=== PATIENT | male | born 1990 | race Caucasian/White ===

== ENCOUNTER 2019-06-14 09:59 | Emergency (ER) | payer OTHER ==
[2019-06-14 10:15] VITALS: BP 119/74; PULSE 58; RESP 16; TEMP 97.9
[2019-06-14] MEDS ORDERED: CYCLOBENZAPRINE 10 MG TAB PO STA (11:06)
[2019-06-14] MEDS ORDERED: KETOROLAC 30 MG/ML 1 ML VIAL IM STA (11:06)
[2019-06-14] MEDS ORDERED: methylPREDNISolone SOD SUCCI 125 MG/2 ML VIAL IM ONE (11:06)
--- NOTE | 2019-06-14 11:35 | ED ---
General Adult HPI - General Chief complaint: Extremity Injury, Lower Stated complaint: IHS - leg injury Time Seen by Provider: 06/14/19 10:24 Source: patient Mode of arrival: ambulatory Limitations: no limitations - History of Present Illness Initial comments: 29-year-old male presents to the emergency department for a chief complaint of right leg pain. Patient states he was walking at work when he stepped in a pot hole and felt a pain in his right buttock and right knee. Patient states his knee now feels normal but his right buttock is still somewhat painful. States the pain radiates from his buttock down to his toes in his right leg only. States when he puts pressure on his right buttock this causes the pain to worsen. Patient states that his toes were tingling when he puts pressure on his right buttock but when he takes pressure off his toes feel normal. States he is able to walk without difficulty. Denies any numbness of the groin or buttock. Denies any weakness or difficulty walking in the lower extremities. Denies any changes in bladder or bowel function. States his pain is a 6 out of 10. No fevers or chills or history of IV drug abuse. Patient has no other complaints at this time including shortness of breath, chest pain, abdominal pain, nausea or vomiting, headache, or visual changes. - Related Data Previous Rx's Medication Instructions Recorded Cyclobenzaprine [Flexeril] 10 mg PO TID #12 tab 06/14/19 predniSONE 50 mg PO DAILY #5 tablet 06/14/19 Allergies Allergy/AdvReac Type Severity Reaction Status Date / Time No Known Allergies Allergy Verified 06/14/19 10:27 Review of Systems ROS Statement: Those systems with pertinent positive or pertinent negative responses have been documented in the HPI. ROS Other: All systems not noted in ROS Statement are negative. Past Medical History Past Medical History: No Reported History History of Any Multi-Drug Resistant Organisms: None Reported Past Surgical History: No Surgical Hx Reported Past Psychological History: No Psychological Hx Reported Smoking Status: Current every day smoker Past Alcohol Use History: Occasional Past Drug Use History: None Reported General Exam Limitations: no limitations General appearance: alert, in no apparent distress Head exam: Present: atraumatic, normocephalic, normal inspection Eye exam: Present: normal appearance, PERRL, EOMI. Absent: scleral icterus, conjunctival injection, periorbital swelling ENT exam: Present: normal exam, mucous membranes moist Neck exam: Present: normal inspection. Absent: tenderness, meningismus, lymphadenopathy Respiratory exam: Present: normal lung sounds bilaterally. Absent: respiratory distress, wheezes, rales, rhonchi, stridor Cardiovascular Exam: Present: regular rate, normal rhythm, normal heart sounds. Absent: systolic murmur, diastolic murmur, rubs, gallop, clicks GI/Abdominal exam: Present: soft, normal bowel sounds. Absent: distended, tenderness, guarding, rebound, rigid Extremities exam: Present: full ROM (Full range motion of the right leg including the right hip and knee and ankle.), tenderness (Tenderness noted to the right sciatic notch. No tenderness noted to the remainder of the right leg.), normal capillary refill (Capillary refill less than 2 seconds, DP pulse 2+ in the right lower extremity.), other (Sensation intact in the right lower extremity including all digits of the right foot. Positive straight leg raise test.). Absent: pedal edema, joint swelling (No edema or erythema noted of the right lower extremity.), calf tenderness (Note tenderness noted to the right calf. No swelling or edema. No erythema.) Back exam: Absent: vertebral tenderness (No vertebral tenderness.) Neurological exam: Present: normal gait (Patient has a normal gait without difficulty walking.) Course Vital Signs 06/14/19 10:13 Temperature 97.9 F Pulse Rate 58 L Respiratory 16 Rate Blood Pressure 119/74 O2 Sat by Pulse 97 Oximetry Medical Decision Making - Medical Decision Making 29-year-old male presents for right leg pain after stepping in a hole at work. Pain starts in the right buttock and radiates down the right leg. Putting pressure on the right buttock worsens this pain. Neurovascular status is intact in the right lower extremity. Positive straight leg raise test is noted in the right leg. Patient does not have any red flag symptoms. He is ambulatory without difficulty or weakness. Does state he felt tingling in his right toes however this is only when he puts pressure on his right buttock and states that his toes feel numb at this time and has normal sensation. No numbness or feeling to the groin or buttock. No bladder or bowel changes. At this time patient likely has a sciatic nerve pain. Was given IM injection of steroid and anti-inflammatory as well as a muscle relaxer. Family member at bedside observing him home. Patient will follow-up with orthopedics and continue to take steroids anti-inflammatories and muscle relaxers at home. He was given a work note as requested. He will return if he has any worsening symptoms which were discussed thoroughly with him Disposition Clinical Impression: Sciatic leg pain Disposition: HOME SELF-CARE Condition: Good Instructions (If sedation given, give patient instructions): Sciatica (ED), Lower Back Exercises (ED) Additional Instructions: Please take steroid as directed. Please take Motrin Tylenol for pain. Take muscle relaxer as needed but do not drive or operate machinery while taking muscle relaxer. This was prescribed to [facility] pharmacy. Follow-up with ortho in 1-2 days. Return to the emergency department if you have any worsening symptoms such as bladder or bowel changes, numbness or tingling in the groin or buttock, weakness of the lower extremities, or any other concerning symptoms.. Prescriptions: Cyclobenzaprine [Flexeril] 10 mg PO TID #12 tab predniSONE 50 mg PO DAILY #5 tablet Is patient prescribed a controlled substance at d/c from ED?: No Referrals: Ayana Garza MD [REFERRING] - 1-2 days Susy Cook DO [Doctor of Osteopathic Medicine] - 1-2 days Time of Disposition: 11:32
== END 2019-06-14 11:56 | disposition home or self-care (01) ==
LOC: EC 09:59
DX: M54.31 Sciatica, right side (principal); F17.200 Nicotine dependence, unspecified, uncomplicated
CPT/HCPCS: 99283; 96372 ×2; J2930; J1885

== ENCOUNTER 2019-08-31 13:42 | Emergency (ER) | payer OTHER ==
[2019-08-31 13:46] VITALS: TEMP 98.1
[2019-08-31] MEDS ORDERED: ACET/COD 300 MG/30 MG STARTER PACK 6 TAB BTL PO STA (14:53)
--- NOTE | 2019-08-31 15:20 | XR ---
EXAMINATION TYPE: XR wrist complete RT, XR hand complete RT DATE OF EXAM: 08/31/2019 CLINICAL HISTORY: Fall injury with pain. TECHNIQUE: Frontal, lateral and oblique images of the right hand and wrist are obtained. Additional fourth scaphoid view right wrist. COMPARISON: None FINDINGS: There is no acute fracture/dislocation evident in the right wrist. The joint spaces in th e right wrist appear within normal limits. The overlying soft tissue appears unremarkable. Images of the right hand show no acute fracture or dislocation. Incomplete extension of phalanges. Renita int spaces are preserved. Overlying soft tissue is unremarkable. IMPRESSION: There is no acute fracture or dislocation in the right hand or wrist.
[2019-08-31] MEDS ORDERED: IBUPROFEN 600 MG TAB PO STA (15:43)
--- NOTE | 2019-08-31 15:58 | ED ---
Upper Extremity HPI - General Chief Complaint: Extremity Injury, Upper Stated Complaint: Rt wrist/hand injury Time Seen by Provider: 08/31/19 14:45 Source: patient, RN notes reviewed, old records reviewed Mode of arrival: ambulatory Limitations: no limitations - History of Present Illness Initial Comments: This is a 29-year-old male presents emergency times a day after falling down a few stairs on his porch. Complains of right wrist and hand pain. He reports the pain and swelling is mainly over the fourth and fifth metacarpals and carpals. Patient denies any other injury related to the fall. He states he has some pain with range of motion of his fingers. He denies any other symptoms at this time. - Related Data Previous Rx's Medication Instructions Recorded Cyclobenzaprine [Flexeril] 10 mg PO TID #12 tab 06/14/19 predniSONE 50 mg PO DAILY #5 tablet 06/14/19 Ibuprofen 600 mg PO TID #20 tablet 08/31/19 Allergies Allergy/AdvReac Type Severity Reaction Status Date / Time No Known Allergies Allergy Verified 06/14/19 10:27 Review of Systems ROS Statement: Those systems with pertinent positive or pertinent negative responses have been documented in the HPI. ROS Other: All systems not noted in ROS Statement are negative. Past Medical History Past Medical History: No Reported History History of Any Multi-Drug Resistant Organisms: None Reported Past Surgical History: No Surgical Hx Reported Past Psychological History: Bipolar, Depression Smoking Status: Current every day smoker Past Alcohol Use History: Occasional Past Drug Use History: None Reported General Exam - General Exam Comments Initial Comments: Alert and oriented 29-year-old male. No significant distress. Limitations: no limitations General appearance: alert, in no apparent distress Head exam: Present: atraumatic, normocephalic, normal inspection Eye exam: Present: normal appearance, PERRL, EOMI. Absent: scleral icterus, conjunctival injection, periorbital swelling ENT exam: Present: normal exam, mucous membranes moist Neck exam: Present: normal inspection. Absent: tenderness, meningismus, lymphadenopathy Respiratory exam: Present: normal lung sounds bilaterally. Absent: respiratory distress, wheezes, rales, rhonchi, stridor Cardiovascular Exam: Present: regular rate, normal rhythm, normal heart sounds. Absent: systolic murmur, diastolic murmur, rubs, gallop, clicks Right Upper Arm exam: Present: normal inspection, full ROM Elbow exam: Present: normal inspection Forearm Wrist exam: Present: normal inspection, full ROM Hand Wrist exam: Present: tenderness (Show some tenderness and swelling over the fourth and fifth metacarpals and over the ulna styloid process.), swelling. Absent: normal inspection Back exam: Present: normal inspection Neurological exam: Present: alert, oriented X3, CN II-XII intact Psychiatric exam: Present: normal affect, normal mood Skin exam: Present: warm, dry, intact, normal color. Absent: rash Course Vital Signs 08/31/19 08/31/19 13:44 16:08 Temperature 98.1 F 98.1 F Pulse Rate 96 61 Respiratory 17 18 Rate Blood Pressure 125/76 113/64 O2 Sat by Pulse 95 99 Oximetry Procedures - Orthopedic Splinting/Casting Injury #1 Side: right Upper Extremity Injury Location: hand Upper Extremity Immobilizer: ulnar gutter, Candelario wrap, synthetic pre-padded splint Additional Comments: Patient was reevaluated neurovascularly intact. Medical Decision Making - Medical Decision Making 29-year-old male presents today with right hand and wrist pain. Patient reports he tripped down the stairs at his porch. He has no other complaints from the fall. Patient has some tenderness and swelling over the fourth and fifth metacarpal and over the ulnar styloid process. At this time patient's x-rays of the wrist and hand are negative for any acute process. No fracture. Patient was given Candelario wrap, ulnar gutter splint to help with support this with her discussed there is no fracture time. Discussed via continued pain he can follow-up with orthopedic. Patient is agreeable treatment plan will comply. Return parameters were discussed. - Radiology Data Radiology results: report reviewed no Acute fracture or dislocation in the right hand or wrist. Disposition Clinical Impression: Hand contusion, Wrist sprain Disposition: HOME SELF-CARE Condition: Good Instructions (If sedation given, give patient instructions): Hand Sprain (ED) Additional Instructions: Please use medication as discussed. Please follow up with family doctor if symptoms have not improved over the next two days. Please return to the emergency room if your symptoms increase or worsen or for any other concerns. follow up with fire prevention specialist. Wear the Candelario wrap as directed. Prescriptions: Ibuprofen 600 mg PO TID #20 tablet Is patient prescribed a controlled substance at d/c from ED?: No Referrals: None,Stated [Primary Care Provider] - 1-2 days Graeme Lea DO [Doctor of Osteopathic Medicine] - 1-2 days Time of Disposition: 15:57
[2019-08-31 16:12] VITALS: BP 113/64; PULSE 61; RESP 18
== END 2019-08-31 16:18 | disposition home or self-care (01) ==
LOC: EC 13:42
DX: S63.501A Unspecified sprain of right wrist, initial encounter (principal); F17.200 Nicotine dependence, unspecified, uncomplicated; W10.9XXA Fall (on) (from) unspecified stairs and steps, initial encounter
CPT/HCPCS: 29125; 99284

== ENCOUNTER → 2021-06-12 | Outpatient (CLI) | payer OTHER ==
--- NOTE | 2021-06-15 09:07 | CT ---
EXAMINATION TYPE: CT abdomen pelvis wo con DATE OF EXAM: 06/12/2021 COMPARISON: 06/02/2018 HISTORY: 31-year-old male Bilateral flank pain, back pain. Bowel/urination difficulty. CT DLP: 1025 mGycm. Automated exposure control for dose reduction was used. TECHNIQUE: Contiguous axial scanning of the abdomen and pelvis without IV contrast. Coronal and sagit marivel reconstructions performed. FINDINGS: Heart normal size without pericardial effusion. Lung bases clear without pleural effusion. Small hiatal hernia. Noncontrast appearance of the liver, gallbladder, adrenal glands, spleen, and pancreas show no gross abnormality. Right kidney shows no calculi are contour deforming lesion. Left kidney demonstrates a 7 mm nonobstructive mid pole calculus. No hydronephrosis on either side. N o suspicious calculus along the course of either ureter. No dilated small bowel, free fluid, or free air. A few nonenlarged retroperitoneal lymph nodes measuring up to 6 mm. No mesenteric or retroperitoneal lymphadenopathy. Normal appendix. Mild stool burden. Mild diverticular change in the sigmoid colon. No pericolonic inf lammatory change. Moderate circumferential bladder wall thickening. Prostate gland is borderline enlarged measuring 4.1 cm wide. Multiple left-sided pelvic phleboliths. No abnormal fluid collection in the pelvis or pelvi c lymphadenopathy. Bones: No osseous destructive process. IMPRESSION: 1. Small hiatal hernia, 7 mm nonobstructive left renal calculus, and mild diverticulosis in the sigm oid colon. 2. Moderate circumferential bladder wall thickening could represent chronic bladder wall hypertrophy or cystitis. Clinically correlate.
== END | disposition home or self-care (01) ==
LOC: RADCTMAIN 16:39
PROVIDERS: ATTEND Family Medicine
DX: N20.0 Calculus of kidney (principal); K57.30 Diverticulosis of large intestine without perforation or abscess without bleeding; K44.9 Diaphragmatic hernia without obstruction or gangrene; N32.89 Other specified disorders of bladder
CPT/HCPCS: 74176

== ENCOUNTER 2021-08-24 12:32 | Emergency (ER) | payer OTHER ==
[2021-08-24 12:40] VITALS: TEMP 98.4
--- NOTE | 2021-08-24 13:17 | XR ---
EXAMINATION TYPE: XR chest 2V DATE OF EXAM: 08/24/2021 COMPARISON: NONE HISTORY: Chest pain TECHNIQUE: Frontal and lateral views of the chest are obtained. FINDINGS: There is no focal air space opacity. No evidence for pneumothorax. No pleural effusion. The cardiac silhouette size is within normal limits. The osseous structures are grossly intact. IMPRESSION: 1. No acute cardiopulmonary process.
[2021-08-24 13:39] LABS: Partial Thromboplastin Time 26.3 sec (22.0-30.0); Prothrombin Time 10.3 sec (9.0-12.0)
[2021-08-24 13:44] LABS: Basophils % (A) 0 %; Eosinophils # (A) 0.3 k/uL (0-0.7); Eosinophils % (A) 3 %; Lymphocytes # (A) 1.8 k/uL (1.0-4.8); Lymphocytes % (A) 13 %; MCH 30.8 pg (25.0-35.0); MCHC 35.4 g/dL (31.0-37.0); MCV 87.2 fL (80.0-100.0); Mean Platelet Volume 8.4; Monocytes # (A) 0.8 k/uL (0-1.0); Monocytes % (A) 6 %; Neutrophils # (A) 10.4 k/uL (1.3-7.7); Neutrophils % (A) 77 %; Platelet Count 336 k/uL (150-450); RDW 11.7 % (11.5-15.5); WBC 13.4 k/uL (3.8-10.6)
[2021-08-24 14:05] LABS: ALT 15 U/L (4-49); AST 19 U/L (17-59); African American GFR (CKD) >90 (>60 ml/min/1.73 sqM); Albumin 4.5 g/dL (3.5-5.0); Alkaline Phosphatase 88 U/L (38-126); Anion Gap 8 mmol/L; Blood Urea Nitrogen 11 mg/dL (9-20); Calcium 9.3 mg/dL (8.4-10.2); Carbon Dioxide 24 mmol/L (22-30); Chloride 105 mmol/L (98-107); Glucose 91 mg/dL (74-99); Magnesium 2.1 mg/dL (1.6-2.3); Non-African American GFR(CKD) >90 (>60 ml/min/1.73 sqM); Potassium 4.3 mmol/L (3.5-5.1); Sodium 137 mmol/L (137-145); Total Bilirubin 0.6 mg/dL (0.2-1.3); Total Protein 7.5 g/dL (6.3-8.2)
[2021-08-24] MEDS ORDERED: dexAMETHasone 2 MG TAB PO STA (17:13)
[2021-08-24] MEDS ORDERED: AZITHROMYCIN 500 MG TAB PO STA (17:13)
--- NOTE | 2021-08-24 17:15 | ED ---
General Adult HPI - General Chief complaint: Chest Pain Stated complaint: Chest pain Time Seen by Provider: 08/24/21 16:55 Source: patient Mode of arrival: ambulatory Limitations: no limitations - History of Present Illness Initial comments: Patient is a 31-year-old male with no significant past medical history presents emergency Department complaining of a two-week history of upper respiratory symptoms, and chest tightness. Patient states that his diagnosed with a viral syndrome 2 weeks ago, and is feeling somewhat better but symptoms are still pe rsisting. He states he is having worsening pain with coughing and a tightness across his chest. Denies any sore throat. Endorses rhinorrhea. Patient states he was previously tested for Covid and it was negative. Denies any nausea, vomiting. Endorses normal appetite. Tolerating by mouth intake. Denies diarrhea. Has no known sick contacts. He does typical he smoked but has no history of COPD or asthma. Presents emergency department over continued symptoms, as his PCP has not started on any medications. I evaluated the patient when he was brought back from triage. Workup was started in triage. - Related Data Previous Rx's Medication Instructions Recorded Cyclobenzaprine [Flexeril] 10 mg PO TID #12 tab 06/14/19 predniSONE 50 mg PO DAILY #5 tablet 06/14/19 Ibuprofen 600 mg PO TID #20 tablet 08/31/19 Azithromycin [Zithromax] 250 mg PO DAILY 4 Days #4 tab 08/24/21 Allergies Allergy/AdvReac Type Severity Reaction Status Date / Time No Known Allergies Allergy Verified 08/24/21 12:36 Review of Systems ROS Statement: Those systems with pertinent positive or pertinent negative responses have been documented in the HPI. Review of Systems: CONST: Denies fever EYES: Denies blurry vision ENT: Endorses nasal congestion C/V: Endorses chest tightness RESP: Denies shortness of breath GI: Denies abdominal pain : Denies dysuria SKIN: Denies rash. MSK: Denies joint pain. NEURO: Denies headache ROS Other: All systems not noted in ROS Statement are negative. Past Medical History Past Medical History: No Reported History History of Any Multi-Drug Resistant Organisms: None Reported Past Surgical History: No Surgical Hx Reported Past Psychological History: Bipolar, Depression Smoking Status: Current every day smoker Past Alcohol Use History: Occasional Past Drug Use History: None Reported General Exam - General Exam Comments Initial Comments: General: Appears in no acute distress. HEAD: Normal with no signs of head trauma. EYES: PERRLA, EOMI, conjunctiva normal, no discharge. ENT: Hearing grossly intact, normal oropharynx. RESPIRATORY: Clear breath sounds bilaterally. No wheezes, rales, or rhonchi. No increased work of breathing. No hypoxia. C/V: Regular rate and rhythm. S1 and S2 auscultated, no edema, peripheral p ulses 2+ and intact throughout. Chest pain is not reproducible on palpation. ABD: Abd is soft, nontender, nondistended EXT: Normal range of motion, no obvious deformity SKIN: No rashes or lesions observed on exposed skin. NEURO: Alert and oriented 4. Limitations: no limitations Course Vital Signs 08/24/21 08/24/21 12:36 17:30 Temperature 98.4 F Pulse Rate 84 82 Respiratory 18 16 Rate Blood Pressure 131/73 122/60 O2 Sat by Pulse 98 97 Oximetry Medical Decision Making - Medical Decision Making Based on patient's presentation and physical exam, I'm concerned for likely persistent upper respiratory illness and the patient. Chest pain workup was started by triage nursing, including d-dimer, troponin, EKG, chest x-ray, Covid swab and basic labs. I evaluated the patient after all results returned. EKG showed normal sinus rhythm with no signs of acute ischemia. Chest x-ray shows no acute cardiopulmonary process. Laboratory studies were remarkable for mild leukocytosis of 13.4. D-dimer is within normal limits at 0.32. Troponin is negative. Covid is negative. Remainder the labs are unremarkable. Accepted the patient on results of his labs and imaging. I do believe this may be to stay persistent viral illness, possible bronchitis. I did offer the patient a Z-Randy as well as a one-time dose of Decadron. He was in agreement with the plan. I do believe it is safe for him to be discharged home at this time. Patient will be given 6 mgs of Decadron as well as 500 mg of azithromycin prior to discharge. I will provide the patient with a prescription for azithromycin 250 mg for 4 days. I instructed the patient to follow up with their PCP in the next 3 days. I explained that the patient should return to the emergency department if they experience any worsening symptoms. Strict return precautions were discussed with the patient. The patient expressed understanding of these instructions. I answered all questions that the patient had. The patient was discharged home in good condition with their prescriptions and follow up information. - Lab Data Result diagrams: 08/24/21 12:54 08/24/21 12:54 Lab Results 08/24/21 08/24/21 08/24/21 Range/Units 12:54 12:54 12:54 WBC 13.4 H (3.8-10.6) k/uL RBC 5.50 (4.30-5.90) m/uL Hgb 17.0 (13.0-17.5) gm/dL Hct 48.0 (39.0-53.0) % MCV 87.2 (80.0-100.0) fL MCH 30.8 (25.0-35.0) pg MCHC 35.4 (31.0-37.0) g/dL RDW 11.7 (11.5-15.5) % Plt Count 336 (150-450) k/uL MPV 8.4 Neutrophils % 77 % Lymphocytes % 13 % Monocytes % 6 % Eosinophils % 3 % Basophils % 0 % Neutrophils # 10.4 H (1.3-7.7) k/uL Lymphocytes # 1.8 (1.0-4.8) k/uL Monocytes # 0.8 (0-1.0) k/uL Eosinophils # 0.3 (0-0.7) k/uL Basophils # 0.0 (0-0.2) k/uL PT 10.3 (9.0-12.0) sec INR 1.0 (<1.2) APTT 26.3 (22.0-30.0) sec D-Dimer 0.32 (<0.60) mg/L FEU Sodium 137 (137-145) mmol/L Potassium 4.3 (3.5-5.1) mmol/L Chloride 105 (98-107) mmol/L Carbon Dioxide 24 (22-30) mmol/L Anion Gap 8 mmol/L BUN 11 (9-20) mg/dL Creatinine 0.94 (0.66-1.25) mg/dL Est GFR (CKD-EPI)AfAm >90 (>60 ml/min/1.73 sqM) Est GFR (CKD-EPI)NonAf >90 (>60 ml/min/1.73 sqM) Glucose 91 (74-99) mg/dL Calcium 9.3 (8.4-10.2) mg/dL Magnesium 2.1 (1.6-2.3) mg/dL Total Bilirubin 0.6 (0.2-1.3) mg/dL AST 19 (17-59) U/L ALT 15 (4-49) U/L Alkaline Phosphatase 88 (38-126) U/L Troponin I (0.000-0.034) ng/mL Total Protein 7.5 (6.3-8.2) g/dL Albumin 4.5 (3.5-5.0) g/dL Coronavirus (PCR) (Not Detectd) 08/24/21 08/24/21 Range/Units 12:54 13:05 WBC (3.8-10.6) k/uL RBC (4.30-5.90) m/uL Hgb (13.0-17.5) gm/dL Hct (39.0-53.0) % MCV (80.0-100.0) fL MCH (25.0-35.0) pg MCHC (31.0-37.0) g/dL RDW (11.5-15.5) % Plt Count (150-450) k/uL MPV Neutrophils % % Lymphocytes % % Monocytes % % Eosinophils % % Basophils % % Neutrophils # (1.3-7.7) k/uL Lymphocytes # (1.0-4.8) k/uL Monocytes # (0-1.0) k/uL Eosinophils # (0-0.7) k/uL Basophils # (0-0.2) k/uL PT (9.0-12.0) sec INR (<1.2) APTT (22.0-30.0) sec D-Dimer (<0.60) mg/L FEU Sodium (137-145) mmol/L Potassium (3.5-5.1) mmol/L Chloride (98-107) mmol/L Carbon Dioxide (22-30) mmol/L Anion Gap mmol/L BUN (9-20) mg/dL Creatinine (0.66-1.25) mg/dL Est GFR (CKD-EPI)AfAm (>60 ml/min/1.73 sqM) Est GFR (CKD-EPI)NonAf (>60 ml/min/1.73 sqM) Glucose (74-99) mg/dL Calcium (8.4-10.2) mg/dL Magnesium (1.6-2.3) mg/dL Total Bilirubin (0.2-1.3) mg/dL AST (17-59) U/L ALT (4-49) U/L Alkaline Phosphatase (38-126) U/L Troponin I <0.012 (0.000-0.034) ng/mL Total Protein (6.3-8.2) g/dL Albumin (3.5-5.0) g/dL Coronavirus (PCR) Not Detected (Not Detectd) Disposition Clinical Impression: Bronchitis Disposition: HOME SELF-CARE Condition: Good Instructions (If sedation given, give patient instructions): Acute Bronchitis (ED) Prescriptions: Azithromycin [Zithromax] 250 mg PO DAILY 4 Days #4 tab Is patient prescribed a controlled substance at d/c from ED?: No Referrals: Edin Thomas Jr, DO [Primary Care Provider] - 1-2 days
[2021-08-24 17:32] VITALS: BP 122/60; PULSE 82; RESP 16
== END 2021-08-24 17:42 | disposition home or self-care (01) ==
LOC: EC 12:32
DX: J40 Bronchitis, not specified as acute or chronic (principal); D72.829 Elevated white blood cell count, unspecified; F17.200 Nicotine dependence, unspecified, uncomplicated; Z20.822 Contact with and (suspected) exposure to COVID-19
CPT/HCPCS: 36415; 93005; 85379; 80053; 83735; 84484; 85025; 85610; 85730; 87635; 71046; 99285; J8540

== ENCOUNTER 2021-10-08 08:47 | Emergency (ER) | payer OTHER ==
[2021-10-08 08:57] VITALS: BP 111/75; PULSE 86; RESP 18; TEMP 96.9
[2021-10-08] MEDS ORDERED: KETOROLAC 15 MG/ML 1 ML VIAL IM STA (09:12)
--- NOTE | 2021-10-08 09:21 | ED ---
General Adult HPI - General Chief complaint: Back Pain/Injury Stated complaint: spine pain Time Seen by Provider: 10/08/21 08:58 Source: patient Mode of arrival: ambulatory Limitations: no limitations - History of Present Illness Initial comments: 31-year-old male presents to the emergency room for a chief complaint of mid to lower back pain for the past 2 weeks. 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 Patient states the pain is worse when he gets up in the morning and then seems to improve throughout the day. It then worsens again after work. Patient states the pain worsens with sitting up straight against the back of a chair or standing up straight. Patient denies any radiation down his legs. Patient denies blood or bowel changes, saddle anesthesia, weakness of the legs, or fevers or chills. Denies any trauma to the area.Patient has no other complaints at this time including shortness of breath, chest pain, abdominal pain, nausea or vomiting, headache, or visual changes. - Related Data Previous Rx's Medication Instructions Recorded Cyclobenzaprine [Flexeril] 10 mg PO TID #12 tab 06/14/19 predniSONE 50 mg PO DAILY #5 tablet 06/14/19 Ibuprofen 600 mg PO TID #20 tablet 08/31/19 Azithromycin [Zithromax] 250 mg PO DAILY 4 Days #4 tab 08/24/21 Cyclobenzaprine [Flexeril] 10 mg PO TID #20 tab 10/08/21 Ibuprofen [Motrin] 600 mg PO Q6HR PRN #20 tab 10/08/21 Allergies Allergy/AdvReac Type Severity Reaction Status Date / Time No Known Allergies Allergy Verified 10/08/21 08:57 Review of Systems ROS Statement: Those systems with pertinent positive or pertinent negative responses have been documented in the HPI. ROS Other: All systems not noted in ROS Statement are negative. Past Medical History Past Medical History: No Reported History History of Any Multi-Drug Resistant Organisms: None Reported Past Surgical History: No Surgical Hx Reported Past Psychological History: Bipolar, Depression Smoking Status: Current every day smoker Past Alcohol Use History: Occasional Past Drug Use History: None Reported General Exam Limitations: no limitations General appearance: alert, in no apparent distress Head exam: Present: atraumatic Eye exam: Present: normal appearance, PERRL, EOMI. Absent: scleral icterus, conjunctival injection ENT exam: Present: normal exam, mucous membranes moist Neck exam: Present: normal inspection, full ROM. Absent: tenderness Respiratory exam: Present: normal lung sounds bilaterally. Absent: respiratory distress, wheezes Cardiovascular Exam: Present: regular rate, normal rhythm, normal heart sounds GI/Abdominal exam: Present: soft, normal bowel sounds. Absent: distended, tenderness Extremities exam: Present: other (strength 5 out of 5, capillary refill less than 2 seconds bilateral lower extremities. Sensation intact.) Back exam: Present: paraspinal tenderness (Bilateral right and left upper paraspinal lumbar tenderness). Absent: vertebral tenderness Neurological exam: Present: alert Course Vital Signs 10/08/21 08:55 Temperature 96.9 F L Pulse Rate 86 Respiratory 18 Rate Blood Pressure 111/75 O2 Sat by Pulse 97 Oximetry Medical Decision Making - Medical Decision Making Patient presents for a musculoskeletal reproducible back pain consistent with mechanical back pain. Patient was given Toradol here in the emergency room and muscle relaxers at home. He was advised not to drive while taking these. Patient's only to follow up with orthopedics for possible MRI. He will return here for any worsening symptoms. Disposition Clinical Impression: Mechanical back pain Disposition: HOME SELF-CARE Condition: Good Instructions (If sedation given, give patient instructions): Acute Low Back Pain (ED) Additional Instructions: Please take Motrin and muscle relaxer for pain. Do not drive while taking the muscle relaxer. Follow-up with orthopedics by calling today for the earliest available appointment. Return to the emergency room for any worsening symptoms. Prescriptions: Cyclobenzaprine [Flexeril] 10 mg PO TID #20 tab Ibuprofen [Motrin] 600 mg PO Q6HR PRN #20 tab PRN Reason: Pain Is patient prescribed a controlled substance at d/c from ED?: No Referrals: Edin Thomas Jr, DO [Primary Care Provider] - 1-2 days Susy Cook DO [Doctor of Osteopathic Medicine] - 1-2 days Time of Disposition: 09:18
== END 2021-10-08 09:36 | disposition home or self-care (01) ==
LOC: EC 08:47
DX: M54.59 Other low back pain (principal); F31.9 Bipolar disorder, unspecified; F17.200 Nicotine dependence, unspecified, uncomplicated; Z20.822 Contact with and (suspected) exposure to COVID-19
CPT/HCPCS: 99283; 96372; 87635; J1885